=== PATIENT | female | born 1980 | race Caucasian/White ===

== ENCOUNTER 2021-07-08 23:50 | Inpatient (IN) ==
[2021-07-09] MEDS ORDERED: Naloxone 0.4 MG/ML INJ IVP PRN ×2 (03:10→15:09)
[2021-07-09] MEDS ORDERED: Melatonin 3 MG TABLET PO PRN ×2 (03:10→15:09)
[2021-07-09] MEDS ORDERED: *HR* Dextrose 50 % in Water (Syg) 50 ML SYRINGE IVP PRN ×2 (03:11→15:09)
[2021-07-09] MEDS ORDERED: Dextrose 4 GM Chewable Tablets PO PRN ×4 (03:11→15:09)
[2021-07-09] MEDS ORDERED: D5% in Water 1,000 ML IVC PRN ×2 (03:11→15:09)
[2021-07-09] MEDS ORDERED: 0.9 % Sodium Chloride 1,000 ML IVC ONE (03:52)
[2021-07-09] MEDS ORDERED: Isovue-370 500 ML BOTTLE IVP ONE ×2 (04:06→15:09)
[2021-07-09 04:43] LABS: Basophils # 0.1 K/mcL (0.0-0.2); Basophils % 0.2 %; Eosinophils # 0.2 K/mcL (0.0-0.6); Hematocrit 25.4 % (35.3-44.9); Hemoglobin 8.4 g/dL (11.5-15.4); Immature Granulocytes % 0.9 % (0-4); Lymphocytes # 1.6 K/mcL (0.6-4.6); Mean Corpuscular HGB Conc 33.1 g/dL (31.6-35.5); Mean Corpuscular Hemoglobin 28.4 pg (28.0-33.3); Mean Corpuscular Volume 85.8 fL (83.0-100.0); Mean Platelet Volume 9.2 fL (9.4-12.4); Monocytes # 1.9 K/mcL (0.0-1.3); Monocytes % 8.6 %; Neutrophils # 18.4 K/mcL (1.6-8.9); Platelet Count 538 K/mcL (140-400); Red Blood Count 2.96 M/mcL (3.82-4.97); Red Cell Distribution Width 12.9 % (11.5-14.5); Segmented Neutrophils % 82.3 %; White Blood Count 22.4 K/mcL (4.3-11.1)
[2021-07-09] MEDS: Clindamycin 600 MG/50 ML 600 MG/50 ML IV.SOLN IVPB SCH ×3 (04:50→20:28)
[2021-07-09] MEDS ORDERED: Vancomycin 1,500 MG/265 ML IV.SOLN IVPB ONE (05:00)
[2021-07-09] MEDS ORDERED: 0.9 % Sodium Chloride 1,000 ML IVC SCH (05:00)
[2021-07-09] MEDS ORDERED: Insulin LISPRO 300 UNITS/3 ML VIAL SUBQ SCH ×2 (05:15→06:00)
[2021-07-09 05:29] LABS: Folate > 22.3 ng/mL (3.0-16.0); Vitamin B12 > 1500 pg/mL (250-1100)
[2021-07-09] MEDS: *HR* Heparin 5,000 UNIT/ML VIAL SQ SCH ×2 (05:53→14:31)
[2021-07-09] MEDS: Piperacillin/Tazobactam 3.375 GM in 0.9 % Sodium Chloride Mini Bag 100 ML IVPB SCH ×3 (05:54→20:28)
[2021-07-09 06:00] LABS: Estimated Average Glucose 298 mg/dl
[2021-07-09 06:01] LABS: Acetaminophen < 10 mcg/mL (10-20); Ethanol < 10 mg/dL (Less than 10); Thyroid Stimulating Hormone 0.693 mcIU/mL (0.340-5.600)
[2021-07-09 06:01] LABS: Alanine Aminotransferase 9 Units/L (7-52); Albumin 2.8 g/dL (3.5-5.7); Albumin/Globulin Ratio 0.8 (1.1-2.2); Alkaline Phosphatase 115 Units/L (34-104); Aspartate Amino Transferase 8 Units/L (13-39); BUN/Creatinine Ratio 16 (6-26); Bilirubin,Total 0.3 mg/dL (0.3-1.0); Blood Urea Nitrogen 21 mg/dL (6-20); C-Reactive Protein > 300 mg/L (Less than 10); Calcium 8.7 mg/dL (8.6-10.3); Carbon Dioxide 15 mEq/L (23-29); Chloride 106 mEq/L (98-107); Creatine Kinase 25 Units/L (30-223); Globulin 3.3 g/dL (2.4-3.5); Glucose 393 mg/dL (70-105); Magnesium 1.9 mg/dL (1.6-2.6); Osmolality,Calculated 289 (280-300); Phosphorous 2.7 mg/dL (2.7-4.5); Potassium 3.7 mEq/L (3.5-5.1); Sodium 130 mEq/L (136-145); Total Protein 6.1 g/dL (6.4-8.9); eGFR For African Americans 53 (> 60); eGFR For Non-African Americans 44 (> 60)
[2021-07-09 07:41] LABS: Ferritin 260 ng/mL (10-120); Iron < 10 mcg/dL (50-170); Transferrin 142 mg/dL (203-362)
[2021-07-09] MEDS ORDERED: Sodium Bicarbonate 75 MEQ in 0.45 % Sodium Chloride 1,000 ML IVC SCH (08:00)
[2021-07-09] MEDS: Insulin LISPRO 300 UNITS/3 ML VIAL SUBQ SCH ×4 (08:22→20:30)
[2021-07-09] MEDS ORDERED: Insulin DETEMIR 100 UNIT/ML X5UNITS SUBQ SCH (09:00)
[2021-07-09] MEDS ORDERED: Famotidine 20 MG/2 ML VIAL IVP ONE (11:18)
[2021-07-09] MEDS ORDERED: Acetaminophen IV 1,000 MG/100 ML BAG IVPB ONE (12:30)
[2021-07-09] MEDS ORDERED: Bupivacaine-MPF 0.25% 10 ML VIAL ONE (12:46)
[2021-07-09] MEDS ORDERED: *HR* FentaNYL (PF) 100 MCG/2 ML VIAL ONE (13:58)
[2021-07-09] MEDS: Vancomycin 1,250 MG/262.5 ML IV.SOLN IVPB SCH (16:59)
[2021-07-09] MEDS ORDERED: Vancomycin 1,250 MG/262.5 ML IV.SOLN IVPB SCH (17:00)
[2021-07-09] MEDS: *HR* HYDROcodone/Acet 5/325 mg TABLET PO PRN (18:44)
[2021-07-09] MEDS: Sodium Bicarbonate 75 MEQ in 0.45 % Sodium Chloride 1,000 ML IVC SCH (20:29)
[2021-07-10] MEDS: Insulin LISPRO 300 UNITS/3 ML VIAL SUBQ SCH ×5 (00:01→16:38)
[2021-07-10 00:20] LABS: Creatinine,Urine 77 mg/dL; Sodium, Urine 33.8 mEq/L
[2021-07-10 00:44] LABS: Amphetamine Screen,Urine Negative ng/mL (Cutoff=1000); Barbiturate Screen,Urine Negative ng/mL (Cutoff=200); Benzodiazepines Screen,Urine Negative ng/mL (Cutoff=200); Cannabinoid Screen,Urine Negative ng/mL (Cutoff = 50); Cocaine Screen,Urine Negative ng/mL (Cutoff= 300); Opiate Screen,Urine Positive ng/mL (Cutoff=300); Phencyclidine Screen,Urine Negative ng/mL (Cutoff=25)
[2021-07-10] MEDS: *HR* HYDROcodone/Acet 5/325 mg TABLET PO PRN ×4 (00:45→19:34)
[2021-07-10] MEDS: Piperacillin/Tazobactam 3.375 GM in 0.9 % Sodium Chloride Mini Bag 100 ML IVPB SCH ×3 (04:32→21:18)
[2021-07-10] MEDS: Vancomycin 1,250 MG/262.5 ML IV.SOLN IVPB SCH (04:32)
[2021-07-10] MEDS: Clindamycin 600 MG/50 ML 600 MG/50 ML IV.SOLN IVPB SCH ×3 (04:33→19:35)
[2021-07-10] MEDS: Sodium Bicarbonate 75 MEQ in 0.45 % Sodium Chloride 1,000 ML IVC SCH ×2 (04:33→16:38)
[2021-07-10 06:19] LABS: Basophils # 0.1 K/mcL (0.0-0.2); Basophils % 0.3 %; Eosinophils # 0.3 K/mcL (0.0-0.6); Eosinophils % 2.2 %; Hematocrit 21.9 % (35.3-44.9); Hemoglobin 7.1 g/dL (11.5-15.4); Lymphocytes # 2.1 K/mcL (0.6-4.6); Lymphocytes % 13.7 %; Mean Corpuscular HGB Conc 32.4 g/dL (31.6-35.5); Mean Corpuscular Hemoglobin 28.2 pg (28.0-33.3); Mean Corpuscular Volume 86.9 fL (83.0-100.0); Mean Platelet Volume 9.2 fL (9.4-12.4); Monocytes # 1.4 K/mcL (0.0-1.3); Neutrophils # 11.4 K/mcL (1.6-8.9); Platelet Count 451 K/mcL (140-400); Red Blood Count 2.52 M/mcL (3.82-4.97); Red Cell Distribution Width 13.2 % (11.5-14.5); Segmented Neutrophils % 73.8 %; White Blood Count 15.5 K/mcL (4.3-11.1)
[2021-07-10 06:39] LABS: BUN/Creatinine Ratio 14 (6-26); Blood Urea Nitrogen 15 mg/dL (6-20); Carbon Dioxide 18 mEq/L (23-29); Chloride 109 mEq/L (98-107); Glucose 258 mg/dL (70-105); Magnesium 1.7 mg/dL (1.6-2.6); Osmolality,Calculated 294 (280-300); Phosphorous 2.8 mg/dL (2.7-4.5); Potassium 3.1 mEq/L (3.5-5.1); Sodium 137 mEq/L (136-145); eGFR For African Americans > 60 (> 60); eGFR For Non-African Americans 58 (> 60)
[2021-07-10] MEDS: *HR* Heparin 5,000 UNIT/ML VIAL SQ SCH ×4 (06:46→19:35)
[2021-07-10] MEDS ORDERED: Diclofenac Sodium (24 HR) 100 MG TABLET PO PRN (07:43)
[2021-07-10] MEDS ORDERED: Loratadine 10 MG TABLET PO PRN (07:43)
[2021-07-10 08:20] LABS: Hematocrit 22.5 % (35.3-44.9); Hemoglobin 7.6 g/dL (11.5-15.4)
[2021-07-10] MEDS ORDERED: Insulin DETEMIR 100 UNIT/ML X5UNITS SUBQ SCH (09:00)
[2021-07-10] MEDS ORDERED: FLUOXETINE HCL 40 MG PO SCH (09:00)
[2021-07-10] MEDS: Topiramate 25 MG TABLET PO SCH ×2 (09:21→19:35)
[2021-07-10] MEDS: Gabapentin 400 MG CAPSULE PO SCH ×4 (09:21→19:35)
[2021-07-10] MEDS: Insulin DETEMIR 100 UNIT/ML X5UNITS SUBQ SCH (09:22)
[2021-07-10] MEDS ORDERED: Ipratropium/Albuterol Neb 3 ML IH ONE (11:35)
[2021-07-11] MEDS: Sodium Bicarbonate 75 MEQ in 0.45 % Sodium Chloride 1,000 ML IVC SCH ×2 (01:33→13:01)
[2021-07-11] MEDS: *HR* HYDROcodone/Acet 5/325 mg TABLET PO PRN ×4 (01:37→20:30)
[2021-07-11] MEDS: *HR* Heparin 5,000 UNIT/ML VIAL SQ SCH (04:54)
[2021-07-11] MEDS: Piperacillin/Tazobactam 3.375 GM in 0.9 % Sodium Chloride Mini Bag 100 ML IVPB SCH ×3 (04:55→19:45)
[2021-07-11] MEDS: Clindamycin 600 MG/50 ML 600 MG/50 ML IV.SOLN IVPB SCH ×3 (04:56→19:45)
[2021-07-11] MEDS: Topiramate 25 MG TABLET PO SCH ×2 (07:44→19:29)
[2021-07-11] MEDS: Gabapentin 400 MG CAPSULE PO SCH ×4 (07:44→19:29)
[2021-07-11 08:22] LABS: Basophils # 0.1 K/mcL (0.0-0.2); Basophils % 0.6 %; Eosinophils # 0.5 K/mcL (0.0-0.6); Eosinophils % 3.5 %; Hematocrit 21.6 % (35.3-44.9); Hemoglobin 7.2 g/dL (11.5-15.4); Immature Granulocytes % 1.2 % (0-4); Lymphocytes # 1.9 K/mcL (0.6-4.6); Lymphocytes % 15.2 %; Mean Corpuscular HGB Conc 33.3 g/dL (31.6-35.5); Mean Corpuscular Hemoglobin 28.6 pg (28.0-33.3); Mean Corpuscular Volume 85.7 fL (83.0-100.0); Mean Platelet Volume 9.1 fL (9.4-12.4); Monocytes # 1.2 K/mcL (0.0-1.3); Monocytes % 9.2 %; Neutrophils # 8.9 K/mcL (1.6-8.9); Platelet Count 475 K/mcL (140-400); Red Blood Count 2.52 M/mcL (3.82-4.97); Red Cell Distribution Width 13.2 % (11.5-14.5); Segmented Neutrophils % 70.3 %; White Blood Count 12.7 K/mcL (4.3-11.1)
[2021-07-11] MEDS: Insulin LISPRO 300 UNITS/3 ML VIAL SUBQ SCH ×3 (08:30→17:34)
[2021-07-11] MEDS: Insulin DETEMIR 100 UNIT/ML X5UNITS SUBQ SCH (08:31)
[2021-07-11 08:35] LABS: BUN/Creatinine Ratio 9 (6-26); Blood Urea Nitrogen 9 mg/dL (6-20); Carbon Dioxide 22 mEq/L (23-29); Chloride 105 mEq/L (98-107); Glucose 245 mg/dL (70-105); Osmolality,Calculated 289 (280-300); Potassium 3.3 mEq/L (3.5-5.1); Sodium 136 mEq/L (136-145); eGFR For African Americans > 60 (> 60); eGFR For Non-African Americans > 60 (> 60)
[2021-07-11] MEDS: Pantoprazole 40 MG VIAL IVP SCH ×2 (11:41→19:45)
[2021-07-11] MEDS ORDERED: Ondansetron 4 MG/2 ML VIAL IVP PRN (14:06)
[2021-07-11 14:49] LABS: Hematocrit 21.6 % (35.3-44.9); Hemoglobin 7.3 g/dL (11.5-15.4)
[2021-07-12] MEDS: Sodium Bicarbonate 75 MEQ in 0.45 % Sodium Chloride 1,000 ML IVC SCH ×5 (00:03→20:15)
[2021-07-12] MEDS: *HR* HYDROcodone/Acet 5/325 mg TABLET PO PRN ×3 (03:17→21:39)
[2021-07-12] MEDS: Clindamycin 600 MG/50 ML 600 MG/50 ML IV.SOLN IVPB SCH ×3 (03:18→20:10)
[2021-07-12] MEDS: Piperacillin/Tazobactam 3.375 GM in 0.9 % Sodium Chloride Mini Bag 100 ML IVPB SCH ×3 (04:27→20:12)
[2021-07-12 04:51] LABS: Basophils # 0.1 K/mcL (0.0-0.2); Basophils % 0.7 %; Eosinophils # 0.6 K/mcL (0.0-0.6); Eosinophils % 4.8 %; Hematocrit 24.9 % (35.3-44.9); Hemoglobin 8.2 g/dL (11.5-15.4); Immature Granulocytes % 2.4 % (0-4); Lymphocytes # 1.6 K/mcL (0.6-4.6); Lymphocytes % 13.7 %; Mean Corpuscular HGB Conc 32.9 g/dL (31.6-35.5); Mean Corpuscular Hemoglobin 27.5 pg (28.0-33.3); Mean Corpuscular Volume 83.6 fL (83.0-100.0); Mean Platelet Volume 8.9 fL (9.4-12.4); Monocytes # 1.2 K/mcL (0.0-1.3); Monocytes % 10.1 %; Neutrophils # 7.9 K/mcL (1.6-8.9); Nucleated Red Blood Cells 0.2 /100 WBC (0); Platelet Count 483 K/mcL (140-400); Red Blood Count 2.98 M/mcL (3.82-4.97); Red Cell Distribution Width 14.5 % (11.5-14.5); Segmented Neutrophils % 68.3 %; White Blood Count 11.6 K/mcL (4.3-11.1)
[2021-07-12 05:07] LABS: BUN/Creatinine Ratio 10 (6-26); Blood Urea Nitrogen 9 mg/dL (6-20); Calcium 7.9 mg/dL (8.6-10.3); Carbon Dioxide 19 mEq/L (23-29); Chloride 104 mEq/L (98-107); Glucose 244 mg/dL (70-105); Osmolality,Calculated 289 (280-300); Potassium 3.3 mEq/L (3.5-5.1); Sodium 136 mEq/L (136-145); eGFR For African Americans > 60 (> 60); eGFR For Non-African Americans > 60 (> 60)
[2021-07-12] MEDS: Insulin LISPRO 300 UNITS/3 ML VIAL SUBQ SCH ×3 (07:54→16:54)
[2021-07-12] MEDS ORDERED: *HR* Midazolam HCl 2 MG/2 ML VIAL ONE (08:50)
[2021-07-12] MEDS ORDERED: Lidocaine -MPF 2% 5 ML VIAL ONE (08:50)
[2021-07-12] MEDS ORDERED: Ondansetron 4 MG/2 ML VIAL ONE (08:50)
[2021-07-12] MEDS ORDERED: *HR* FentaNYL (PF) 100 MCG/2 ML VIAL ONE (08:50)
[2021-07-12] MEDS ORDERED: *HR* Propofol 200 MG/20 ML VIAL IVP ONE (08:50)
[2021-07-12] MEDS ORDERED: Ondansetron 4 MG/2 ML VIAL IVP PRN ×3 (08:56→12:44)
[2021-07-12] MEDS ORDERED: Acetaminophen IV 1,000 MG/100 ML BAG IVPB PRN ×2 (08:56→12:44)
[2021-07-12] MEDS ORDERED: Ketorolac 30 MG/ML VIAL IVP PRN (08:56)
[2021-07-12] MEDS ORDERED: *HR* OxyCODONE Immed Rel 5 MG TABLET PO PRN ×2 (08:56→09:37)
[2021-07-12] MEDS ORDERED: Insulin Human Regular 8 UNIT in 0.9 % Sodium Chloride 10 ML IV ONE (09:08)
[2021-07-12] MEDS ORDERED: Bupivacaine-MPF 0.25% 10 ML VIAL ONE (09:17)
[2021-07-12] MEDS ORDERED: Albuterol 2.5 MG/3 ML NEBULIZER IH PRN (09:37)
[2021-07-12] MEDS ORDERED: Ipratropium Neb 0.5 MG NEBULIZER IH PRN (09:37)
[2021-07-12] MEDS ORDERED: *HR* Meperidine 25 MG/ML SYRINGE IVP PRN (09:37)
[2021-07-12] MEDS ORDERED: *HR* Labetalol 20 MG/4 ML SYRINGE IVP PRN (09:37)
[2021-07-12] MEDS ORDERED: Promethazine 6.25 MG in Water for inj. (sterile) 20 ML IVPB PRN (09:37)
[2021-07-12] MEDS ORDERED: Ringers Solution, Lactated 500 ML IVC ONE ×3 (09:45→13:00)
[2021-07-12] MEDS ORDERED: *HR* Midazolam HCl 2 MG/2 ML VIAL IVP PRN ×2 (09:47→12:44)
[2021-07-12] MEDS ORDERED: Ketamine HCL *QUVA* 50mg (1mL) SYRINGE ONE (10:29)
[2021-07-12] MEDS ORDERED: Insulin Human Regular 4 UNIT in 0.9 % Sodium Chloride 10 ML IV ONE (11:04)
[2021-07-12] MEDS: *HR* HYDROmorphone PF 0.5 MG/0.5 ML SYRINGE IVP PRN ×3 (11:08→11:42)
[2021-07-12] MEDS ORDERED: Pregabalin 75 MG CAPSULE PO ONE (11:30)
[2021-07-12] MEDS ORDERED: Diclofenac Sodium (24 HR) 100 MG TABLET PO PRN (12:44)
[2021-07-12] MEDS ORDERED: Loratadine 10 MG TABLET PO PRN (12:44)
[2021-07-12] MEDS ORDERED: D5% in Water 1,000 ML IVC PRN (12:44)
[2021-07-12] MEDS ORDERED: *HR* Dextrose 50 % in Water (Syg) 50 ML SYRINGE IVP PRN (12:44)
[2021-07-12] MEDS ORDERED: Dextrose 4 GM Chewable Tablets PO PRN ×2 (12:44)
[2021-07-12] MEDS ORDERED: Melatonin 3 MG TABLET PO PRN (12:44)
[2021-07-12] MEDS ORDERED: Naloxone 0.4 MG/ML INJ IVP PRN (12:44)
[2021-07-12] MEDS: Gabapentin 400 MG CAPSULE PO SCH ×4 (12:48→20:11)
[2021-07-12] MEDS: Topiramate 25 MG TABLET PO SCH ×2 (12:48→20:11)
[2021-07-12] MEDS: Pantoprazole 40 MG VIAL IVP SCH ×2 (12:48→20:11)
[2021-07-12 14:00] LABS: Hemoglobin 8.9 g/dL (11.5-15.4)
[2021-07-12] MEDS: Insulin DETEMIR 100 UNIT/ML X5UNITS SUBQ SCH (16:54)
[2021-07-13] MEDS: *HR* HYDROcodone/Acet 5/325 mg TABLET PO PRN ×2 (02:53→09:34)
[2021-07-13 03:29] LABS: Basophils % 0.3 %; Eosinophils # 0.7 K/mcL (0.0-0.6); Hematocrit 25.1 % (35.3-44.9); Hemoglobin 8.1 g/dL (11.5-15.4); Immature Granulocytes % 5.4 % (0-4); Lymphocytes # 1.7 K/mcL (0.6-4.6); Lymphocytes % 17.5 %; Mean Corpuscular HGB Conc 32.3 g/dL (31.6-35.5); Mean Corpuscular Hemoglobin 27.8 pg (28.0-33.3); Mean Corpuscular Volume 86.3 fL (83.0-100.0); Monocytes % 10.4 %; Platelet Count 505 K/mcL (140-400); Red Blood Count 2.91 M/mcL (3.82-4.97); Red Cell Distribution Width 14.8 % (11.5-14.5); Segmented Neutrophils % 59.4 %; White Blood Count 9.7 K/mcL (4.3-11.1)
[2021-07-13 03:32] LABS: Neutrophils # 5.8 K/mcL (1.6-8.9)
[2021-07-13 03:51] LABS: BUN/Creatinine Ratio 10 (6-26); Blood Urea Nitrogen 12 mg/dL (6-20); Calcium 7.6 mg/dL (8.6-10.3); Carbon Dioxide 22 mEq/L (23-29); Chloride 103 mEq/L (98-107); Glucose 419 mg/dL (70-105); Osmolality,Calculated 296 (280-300); Potassium 3.7 mEq/L (3.5-5.1); Sodium 134 mEq/L (136-145); eGFR For African Americans > 60 (> 60); eGFR For Non-African Americans 53 (> 60)
[2021-07-13 03:59] LABS: Platelet Estimate Marked Increase (Normal)
[2021-07-13] MEDS: Clindamycin 600 MG/50 ML 600 MG/50 ML IV.SOLN IVPB SCH (04:33)
[2021-07-13] MEDS: Piperacillin/Tazobactam 3.375 GM in 0.9 % Sodium Chloride Mini Bag 100 ML IVPB SCH ×3 (04:34→20:12)
[2021-07-13] MEDS: Sodium Bicarbonate 75 MEQ in 0.45 % Sodium Chloride 1,000 ML IVC SCH ×2 (06:50→16:18)
[2021-07-13] MEDS: Topiramate 25 MG TABLET PO SCH ×2 (07:55→20:12)
[2021-07-13] MEDS: Gabapentin 400 MG CAPSULE PO SCH ×4 (07:55→20:12)
[2021-07-13] MEDS: Insulin LISPRO 300 UNITS/3 ML VIAL SUBQ SCH ×3 (07:59→17:09)
[2021-07-13] MEDS: Pantoprazole 40 MG VIAL IVP SCH ×2 (08:07→20:12)
[2021-07-13] MEDS: Insulin DETEMIR 100 UNIT/ML X5UNITS SUBQ SCH (08:31)
[2021-07-13] MEDS ORDERED: *HR* HYDROcodone/Acet 10/325 mg TABLET PO PRN (12:22)
[2021-07-13] MEDS: Fluconazole 400 MG/200 ML 400 MG/200 ML BAG IVPB SCH ×2 (12:37→14:38)
[2021-07-13] MEDS: *HR* OxyCODONE Immed Rel 5 MG TABLET PO PRN ×3 (13:48→21:55)
[2021-07-13] MEDS ORDERED: SODIUM CHLORIDE/NAHCO3/KCL/PEG 4,000 ML SOLN.RECON PO ONE ×2 (17:00)
[2021-07-14] MEDS: *HR* OxyCODONE Immed Rel 5 MG TABLET PO PRN ×6 (02:16→23:47)
[2021-07-14] MEDS: Sodium Bicarbonate 75 MEQ in 0.45 % Sodium Chloride 1,000 ML IVC SCH (03:02)
[2021-07-14 03:16] LABS: Basophils # 0.1 K/mcL (0.0-0.2); Basophils % 0.6 %; Eosinophils # 0.8 K/mcL (0.0-0.6); Eosinophils % 6.1 %; Hematocrit 25.4 % (35.3-44.9); Hemoglobin 8.3 g/dL (11.5-15.4); Immature Granulocytes % 2.4 % (0-4); Lymphocytes # 2.6 K/mcL (0.6-4.6); Lymphocytes % 19.4 %; Mean Corpuscular HGB Conc 32.7 g/dL (31.6-35.5); Mean Corpuscular Hemoglobin 28.1 pg (28.0-33.3); Mean Corpuscular Volume 86.1 fL (83.0-100.0); Mean Platelet Volume 8.9 fL (9.4-12.4); Monocytes # 1.3 K/mcL (0.0-1.3); Monocytes % 10.1 %; Neutrophils # 8.1 K/mcL (1.6-8.9); Platelet Count 531 K/mcL (140-400); Red Blood Count 2.95 M/mcL (3.82-4.97); Red Cell Distribution Width 14.5 % (11.5-14.5); Segmented Neutrophils % 61.4 %; White Blood Count 13.1 K/mcL (4.3-11.1)
[2021-07-14 03:31] LABS: BUN/Creatinine Ratio 7 (6-26); Blood Urea Nitrogen 6 mg/dL (6-20); Carbon Dioxide 26 mEq/L (23-29); Chloride 108 mEq/L (98-107); Glucose 130 mg/dL (70-105); Osmolality,Calculated 291 (280-300); Potassium 3.4 mEq/L (3.5-5.1); Sodium 141 mEq/L (136-145); eGFR For African Americans > 60 (> 60); eGFR For Non-African Americans > 60 (> 60)
[2021-07-14] MEDS: Piperacillin/Tazobactam 3.375 GM in 0.9 % Sodium Chloride Mini Bag 100 ML IVPB SCH ×2 (04:08→12:13)
[2021-07-14] MEDS: Insulin LISPRO 300 UNITS/3 ML VIAL SUBQ SCH ×3 (07:39→15:00)
[2021-07-14] MEDS: Topiramate 25 MG TABLET PO SCH ×2 (08:32→20:29)
[2021-07-14] MEDS: Fluconazole 400 MG/200 ML 400 MG/200 ML BAG IVPB SCH (08:32)
[2021-07-14] MEDS: Gabapentin 400 MG CAPSULE PO SCH ×5 (08:32→20:26)
[2021-07-14] MEDS: Pantoprazole 40 MG VIAL IVP SCH ×2 (08:32→20:26)
[2021-07-14] MEDS ORDERED: Lidocaine -MPF 2% 5 ML VIAL SQ ONE (10:38)
[2021-07-14] MEDS ORDERED: *HR* Succinylcholine 200 MG/10 ML VIAL IVP ONE (10:38)
[2021-07-14] MEDS ORDERED: *HR* Propofol 200 MG/20 ML VIAL IVP ONE (10:38)
[2021-07-14] MEDS ORDERED: *HR* Propofol 500 MG/50 ML BOTTLE IVP ONE (10:38)
[2021-07-14] MEDS: Insulin DETEMIR 100 UNIT/ML X5UNITS SUBQ SCH (12:14)
[2021-07-14] MEDS: metroNIDAZOLE 500 MG TABLET PO SCH ×2 (15:00→20:25)
[2021-07-15] MEDS: *HR* OxyCODONE Immed Rel 5 MG TABLET PO PRN ×5 (03:19→21:48)
[2021-07-15 04:34] LABS: Basophils # 0.1 K/mcL (0.0-0.2); Eosinophils # 0.5 K/mcL (0.0-0.6); Eosinophils % 5.8 %; Hematocrit 25.9 % (35.3-44.9); Hemoglobin 8.2 g/dL (11.5-15.4); Immature Granulocytes % 3.1 % (0-4); Lymphocytes # 1.7 K/mcL (0.6-4.6); Lymphocytes % 19.2 %; Mean Corpuscular HGB Conc 31.7 g/dL (31.6-35.5); Mean Corpuscular Hemoglobin 28.2 pg (28.0-33.3); Mean Platelet Volume 8.9 fL (9.4-12.4); Monocytes # 0.8 K/mcL (0.0-1.3); Monocytes % 9.4 %; Neutrophils # 5.3 K/mcL (1.6-8.9); Platelet Count 439 K/mcL (140-400); Red Blood Count 2.91 M/mcL (3.82-4.97); Red Cell Distribution Width 14.8 % (11.5-14.5); Segmented Neutrophils % 61.5 %; White Blood Count 8.6 K/mcL (4.3-11.1)
[2021-07-15 05:37] LABS: BUN/Creatinine Ratio 5 (6-26); Blood Urea Nitrogen 5 mg/dL (6-20); Calcium 8.1 mg/dL (8.6-10.3); Carbon Dioxide 21 mEq/L (23-29); Chloride 103 mEq/L (98-107); Glucose 425 mg/dL (70-105); Osmolality,Calculated 295 (280-300); Potassium 4.3 mEq/L (3.5-5.1); Sodium 135 mEq/L (136-145); eGFR For African Americans > 60 (> 60); eGFR For Non-African Americans > 60 (> 60)
[2021-07-15] MEDS: Insulin LISPRO 300 UNITS/3 ML VIAL SUBQ SCH ×3 (07:46→17:12)
[2021-07-15] MEDS: Insulin DETEMIR 100 UNIT/ML X5UNITS SUBQ SCH (07:46)
[2021-07-15] MEDS: Fluconazole 400 MG/200 ML 400 MG/200 ML BAG IVPB SCH (07:46)
[2021-07-15] MEDS: Gabapentin 400 MG CAPSULE PO SCH ×4 (07:47→20:44)
[2021-07-15] MEDS: Topiramate 25 MG TABLET PO SCH ×2 (07:47→20:45)
[2021-07-15] MEDS: Pantoprazole 40 MG VIAL IVP SCH ×2 (07:47→20:45)
[2021-07-15] MEDS: metroNIDAZOLE 500 MG TABLET PO SCH ×3 (07:47→20:45)
[2021-07-15] MEDS ORDERED: 0.9 % Sodium Chloride 1,000 ML IVC SCH (08:15)
[2021-07-15] MEDS ORDERED: Insulin DETEMIR 100 UNIT/ML X5UNITS SUBQ ONE (08:42)
[2021-07-15] MEDS: Furosemide 20 MG TABLET PO PRN (11:29)
[2021-07-15] MEDS: lisinopriL 10 MG TABLET PO SCH (11:35)
[2021-07-15] MEDS ORDERED: Lidocaine -MPF 1% 5 ML AMPUL INFILT ONE (13:17)
[2021-07-15] MEDS: *HR* Heparin 5,000 UNIT/ML VIAL SQ SCH (17:12)
[2021-07-16] MEDS: *HR* OxyCODONE Immed Rel 5 MG TABLET PO PRN ×6 (03:54→20:59)
[2021-07-16 04:48] LABS: Basophils # 0.1 K/mcL (0.0-0.2); Basophils % 0.7 %; Eosinophils # 0.5 K/mcL (0.0-0.6); Eosinophils % 5.2 %; Hematocrit 25.4 % (35.3-44.9); Hemoglobin 7.9 g/dL (11.5-15.4); Immature Granulocytes % 1.4 % (0-4); Lymphocytes # 2.2 K/mcL (0.6-4.6); Lymphocytes % 22.8 %; Mean Corpuscular HGB Conc 31.1 g/dL (31.6-35.5); Mean Corpuscular Volume 90.1 fL (83.0-100.0); Mean Platelet Volume 9.1 fL (9.4-12.4); Monocytes % 10.7 %; Neutrophils # 5.7 K/mcL (1.6-8.9); Platelet Count 435 K/mcL (140-400); Red Blood Count 2.82 M/mcL (3.82-4.97); Segmented Neutrophils % 59.2 %; White Blood Count 9.6 K/mcL (4.3-11.1)
[2021-07-16] MEDS: *HR* Heparin 5,000 UNIT/ML VIAL SQ SCH ×2 (05:23→16:45)
[2021-07-16 05:30] LABS: BUN/Creatinine Ratio 8 (6-26); Blood Urea Nitrogen 8 mg/dL (6-20); Carbon Dioxide 28 mEq/L (23-29); Chloride 105 mEq/L (98-107); Glucose 215 mg/dL (70-105); Magnesium 1.6 mg/dL (1.6-2.6); Osmolality,Calculated 295 (280-300); Phosphorous 4.3 mg/dL (2.7-4.5); Potassium 3.3 mEq/L (3.5-5.1); Sodium 140 mEq/L (136-145); eGFR For African Americans > 60 (> 60); eGFR For Non-African Americans 58 (> 60)
[2021-07-16] MEDS ORDERED: Insulin DETEMIR 100 UNIT/ML X5UNITS SUBQ SCH ×2 (09:00)
[2021-07-16] MEDS: lisinopriL 10 MG TABLET PO SCH (09:13)
[2021-07-16] MEDS: metroNIDAZOLE 500 MG TABLET PO SCH ×3 (09:13→20:55)
[2021-07-16] MEDS: Topiramate 25 MG TABLET PO SCH ×2 (09:13→20:55)
[2021-07-16] MEDS: Gabapentin 400 MG CAPSULE PO SCH ×4 (09:13→20:55)
[2021-07-16] MEDS: Furosemide 20 MG TABLET PO PRN (09:13)
[2021-07-16] MEDS: Pantoprazole 40 MG VIAL IVP SCH ×2 (09:15→20:56)
[2021-07-16] MEDS: Fluconazole 400 MG/200 ML 400 MG/200 ML BAG IVPB SCH (10:14)
[2021-07-16] MEDS: Insulin LISPRO 300 UNITS/3 ML VIAL SUBQ SCH ×3 (10:21→18:00)
[2021-07-16] MEDS: Insulin DETEMIR 100 UNIT/ML X5UNITS SUBQ SCH (21:04)
[2021-07-17] MEDS: *HR* OxyCODONE Immed Rel 5 MG TABLET PO PRN ×6 (00:56→20:23)
[2021-07-17 04:37] LABS: Basophils # 0.1 K/mcL (0.0-0.2); Basophils % 0.6 %; Eosinophils # 0.4 K/mcL (0.0-0.6); Eosinophils % 4.7 %; Hematocrit 25.3 % (35.3-44.9); Hemoglobin 8.2 g/dL (11.5-15.4); Immature Granulocytes % 0.9 % (0-4); Lymphocytes # 1.9 K/mcL (0.6-4.6); Mean Corpuscular HGB Conc 32.4 g/dL (31.6-35.5); Mean Corpuscular Volume 89.4 fL (83.0-100.0); Mean Platelet Volume 9.1 fL (9.4-12.4); Monocytes # 1.1 K/mcL (0.0-1.3); Monocytes % 12.1 %; Neutrophils # 5.5 K/mcL (1.6-8.9); Platelet Count 446 K/mcL (140-400); Red Blood Count 2.83 M/mcL (3.82-4.97); Red Cell Distribution Width 15.6 % (11.5-14.5); Segmented Neutrophils % 60.7 %; White Blood Count 9.1 K/mcL (4.3-11.1)
[2021-07-17 04:57] LABS: BUN/Creatinine Ratio 7 (6-26); Blood Urea Nitrogen 8 mg/dL (6-20); Calcium 8.3 mg/dL (8.6-10.3); Carbon Dioxide 29 mEq/L (23-29); Chloride 104 mEq/L (98-107); Glucose 112 mg/dL (70-105); Magnesium 1.9 mg/dL (1.6-2.6); Osmolality,Calculated 291 (280-300); Potassium 3.4 mEq/L (3.5-5.1); Sodium 141 mEq/L (136-145); eGFR For African Americans > 60 (> 60); eGFR For Non-African Americans 55 (> 60)
[2021-07-17] MEDS: *HR* Heparin 5,000 UNIT/ML VIAL SQ SCH ×2 (06:04→16:47)
[2021-07-17] MEDS ORDERED: Acetaminophen IV 1,000 MG/100 ML BAG IVPB ONE ×2 (07:44→22:02)
[2021-07-17] MEDS ORDERED: Famotidine 20 MG/2 ML VIAL IVP ONE (07:44)
[2021-07-17] MEDS ORDERED: Ondansetron 4 MG/2 ML VIAL ONE (08:00)
[2021-07-17] MEDS ORDERED: *HR* Propofol 200 MG/20 ML VIAL IVP ONE (08:00)
[2021-07-17] MEDS ORDERED: Lidocaine -MPF 2% 5 ML VIAL ONE (08:00)
[2021-07-17] MEDS ORDERED: *HR* Midazolam HCl 2 MG/2 ML VIAL ONE (08:00)
[2021-07-17] MEDS ORDERED: *HR* FentaNYL (PF) 100 MCG/2 ML VIAL ONE (08:00)
[2021-07-17] MEDS ORDERED: Ringers Solution, Lactated 1,000 ML IVC SCH ×2 (08:00→22:02)
[2021-07-17] MEDS ORDERED: Insulin DETEMIR 100 UNIT/ML X5UNITS SUBQ SCH (09:00)
[2021-07-17] MEDS ORDERED: *HR* HYDROmorphone PF 0.5 MG/0.5 ML SYRINGE IVP PRN (09:47)
[2021-07-17] MEDS: Insulin LISPRO 300 UNITS/3 ML VIAL SUBQ SCH ×3 (12:32→16:57)
[2021-07-17] MEDS: Gabapentin 400 MG CAPSULE PO SCH ×4 (12:53→20:23)
[2021-07-17] MEDS: metroNIDAZOLE 500 MG TABLET PO SCH ×3 (12:53→20:23)
[2021-07-17] MEDS: Pantoprazole 40 MG VIAL IVP SCH ×2 (12:53→20:23)
[2021-07-17] MEDS: Topiramate 25 MG TABLET PO SCH ×2 (12:54→20:23)
[2021-07-17] MEDS: lisinopriL 10 MG TABLET PO SCH (12:55)
[2021-07-17] MEDS: Fluconazole 400 MG/200 ML 400 MG/200 ML BAG IVPB SCH (14:47)
[2021-07-17] MEDS: Insulin DETEMIR 100 UNIT/ML X5UNITS SUBQ SCH (20:56)
[2021-07-17] MEDS ORDERED: Melatonin 3 MG TABLET PO PRN (22:02)
[2021-07-17] MEDS ORDERED: Naloxone 0.4 MG/ML INJ IVP PRN (22:02)
[2021-07-17] MEDS ORDERED: *HR* Midazolam HCl 2 MG/2 ML VIAL IVP PRN (22:02)
[2021-07-17] MEDS ORDERED: D5% in Water 1,000 ML IVC PRN (22:02)
[2021-07-17] MEDS ORDERED: Loratadine 10 MG TABLET PO PRN (22:02)
[2021-07-17] MEDS ORDERED: Diclofenac Sodium (24 HR) 100 MG TABLET PO PRN (22:02)
[2021-07-17] MEDS ORDERED: Furosemide 20 MG TABLET PO PRN (22:02)
[2021-07-17] MEDS ORDERED: Ondansetron 4 MG/2 ML VIAL IVP PRN (22:02)
[2021-07-17] MEDS ORDERED: Dextrose 4 GM Chewable Tablets PO PRN ×2 (22:02)
[2021-07-17] MEDS ORDERED: *HR* Dextrose 50 % in Water (Syg) 50 ML SYRINGE IVP PRN (22:02)
[2021-07-18] MEDS: *HR* OxyCODONE Immed Rel 5 MG TABLET PO PRN ×8 (00:45→23:30)
[2021-07-18] MEDS: *HR* Heparin 5,000 UNIT/ML VIAL SQ SCH ×2 (05:47→16:37)
[2021-07-18] MEDS: metroNIDAZOLE 500 MG TABLET PO SCH ×3 (08:22→20:21)
[2021-07-18] MEDS: Topiramate 25 MG TABLET PO SCH ×2 (08:22→20:21)
[2021-07-18] MEDS: Gabapentin 400 MG CAPSULE PO SCH ×4 (08:22→20:21)
[2021-07-18] MEDS: lisinopriL 10 MG TABLET PO SCH (08:23)
[2021-07-18] MEDS: Pantoprazole 40 MG VIAL IVP SCH ×2 (08:24→20:22)
[2021-07-18] MEDS: Fluconazole 400 MG/200 ML 400 MG/200 ML BAG IVPB SCH (08:24)
[2021-07-18] MEDS: Insulin LISPRO 300 UNITS/3 ML VIAL SUBQ SCH ×3 (08:29→18:22)
[2021-07-18] MEDS: Insulin DETEMIR 100 UNIT/ML X5UNITS SUBQ SCH ×2 (08:31→20:27)
[2021-07-18 12:47] LABS: BUN/Creatinine Ratio 6 (6-26); Blood Urea Nitrogen 6 mg/dL (6-20); eGFR For African Americans > 60 (> 60); eGFR For Non-African Americans > 60 (> 60)
[2021-07-19] MEDS: *HR* OxyCODONE Immed Rel 5 MG TABLET PO PRN ×6 (04:07→21:24)
[2021-07-19] MEDS: *HR* Heparin 5,000 UNIT/ML VIAL SQ SCH ×2 (04:08→17:46)
[2021-07-19 05:05] LABS: BUN/Creatinine Ratio 7 (6-26); Blood Urea Nitrogen 7 mg/dL (6-20); eGFR For African Americans > 60 (> 60); eGFR For Non-African Americans 60 (> 60)
[2021-07-19] MEDS: metroNIDAZOLE 500 MG TABLET PO SCH ×3 (08:31→19:46)
[2021-07-19] MEDS: lisinopriL 10 MG TABLET PO SCH (08:31)
[2021-07-19] MEDS: Gabapentin 400 MG CAPSULE PO SCH ×4 (08:31→19:46)
[2021-07-19] MEDS: Insulin LISPRO 300 UNITS/3 ML VIAL SUBQ SCH ×3 (08:32→16:41)
[2021-07-19] MEDS: Topiramate 25 MG TABLET PO SCH ×2 (08:32→19:47)
[2021-07-19] MEDS: Fluconazole 400 MG/200 ML 400 MG/200 ML BAG IVPB SCH (08:33)
[2021-07-19] MEDS: Pantoprazole 40 MG VIAL IVP SCH ×2 (08:33→19:50)
[2021-07-19] MEDS: Insulin DETEMIR 100 UNIT/ML X5UNITS SUBQ SCH ×2 (08:40→21:20)
[2021-07-19] MEDS: Sennosides/Docusate Sodium TABLET PO SCH ×2 (11:12→19:45)
[2021-07-19] MEDS: polyethylene glycoL 3350 17 GM POWD.PACK PO SCH (16:41)
[2021-07-19 19:17] VITALS: TEMP 98.1
[2021-07-20] MEDS: *HR* OxyCODONE Immed Rel 5 MG TABLET PO PRN ×4 (04:30→22:50)
[2021-07-20] MEDS: *HR* Heparin 5,000 UNIT/ML VIAL SQ SCH ×2 (05:57→17:09)
[2021-07-20] MEDS: Insulin LISPRO 300 UNITS/3 ML VIAL SUBQ SCH ×3 (08:22→16:34)
[2021-07-20] MEDS: lisinopriL 10 MG TABLET PO SCH (08:23)
[2021-07-20] MEDS: metroNIDAZOLE 500 MG TABLET PO SCH (08:23)
[2021-07-20] MEDS: Topiramate 25 MG TABLET PO SCH ×2 (08:24→20:58)
[2021-07-20] MEDS: Fluconazole 400 MG/200 ML 400 MG/200 ML BAG IVPB SCH (08:24)
[2021-07-20] MEDS: Gabapentin 400 MG CAPSULE PO SCH ×4 (08:24→20:58)
[2021-07-20] MEDS: Pantoprazole 40 MG VIAL IVP SCH ×2 (08:26→20:58)
[2021-07-20] MEDS: polyethylene glycoL 3350 17 GM POWD.PACK PO SCH (08:27)
[2021-07-20] MEDS: Sennosides/Docusate Sodium TABLET PO SCH ×2 (08:27→20:57)
[2021-07-20] MEDS: Insulin DETEMIR 100 UNIT/ML X5UNITS SUBQ SCH ×2 (08:30→20:58)
[2021-07-20] MEDS ORDERED: Acetaminophen 325 MG TABLET PO PRN (12:43)
[2021-07-20] MEDS ORDERED: Ibuprofen 400 MG TABLET PO PRN (12:44)
[2021-07-20] MEDS: Piperacillin/Tazobactam 3.375 GM in 0.9 % Sodium Chloride Mini Bag 100 ML IVPB SCH ×2 (14:21→20:57)
[2021-07-20 19:56] VITALS: BP 125/83; PULSE 72; O2SAT 96
[2021-07-21] MEDS: *HR* OxyCODONE Immed Rel 5 MG TABLET PO PRN (04:04)
[2021-07-21] MEDS: Piperacillin/Tazobactam 3.375 GM in 0.9 % Sodium Chloride Mini Bag 100 ML IVPB SCH (05:38)
[2021-07-21] MEDS ORDERED: Fluconazole 100 MG TABLET PO SCH (09:00)
[2021-07-21] MEDS: Topiramate 25 MG TABLET PO SCH (09:21)
[2021-07-21] MEDS: Gabapentin 400 MG CAPSULE PO SCH (09:21)
[2021-07-21] MEDS: Sennosides/Docusate Sodium TABLET PO SCH (09:21)
[2021-07-21] MEDS: lisinopriL 10 MG TABLET PO SCH (09:21)
[2021-07-21] MEDS: Pantoprazole 40 MG VIAL IVP SCH (09:22)
[2021-07-21] MEDS: Insulin LISPRO 300 UNITS/3 ML VIAL SUBQ SCH (09:22)
[2021-07-21] MEDS: Insulin DETEMIR 100 UNIT/ML X5UNITS SUBQ SCH (09:22)
[2021-07-21] MEDS: polyethylene glycoL 3350 17 GM POWD.PACK PO SCH (09:25)
== END 2021-07-21 10:16 | disposition home health service (06) | DRG 710 ==
LOC: 3BNU → SUATTDRO 07-09 06:09 → 4WAOSI 07-15 17:22
PROVIDERS: ADMIT Student in an Organized Health Care Education/Training Program; ATTEND Internal Medicine
PROC: ENDOEBX (2021-07-14 14:35)